=== PATIENT | male | born 1965 | race Caucasian/White ===

== ENCOUNTER 2016-10-28 10:31 | Emergency (ER) | payer SELFPAY ==
[2016-10-28 10:46] VITALS: BP 110/74
--- NOTE | 2016-10-28 11:10 | RAD ---
HISTORY: Left foot injury COMPARISONS: None VIEWS: 3, Frontal, lateral, and oblique views of the left foot FINDINGS: BONE DENSITY: Normal. BONES: There is no displaced fracture. There are calcaneal enthesophytes JOINTS: There is no arthropathy. ALIGNMENT: There is no dislocation. SOFT TISSUES: Unremarkable. OTHER FINDINGS: None. IMPRESSION: NO ACUTE OSSEOUS INJURY. IF SYMPTOMS PERSIST, RECOMMEND REPEAT IMAGING.
--- NOTE | 2016-10-28 11:30 | UC ---
Lower Extremity/Ankle HPI - HPI Summary HPI Summary: heavy object fell on left foot 2mo ago. He did not have significant pain at first nor for the first month. for the second month, he has had increased pain with certain positions and after a long day of being on his feet. no swelling redness. no prior injury. - History of Current Complaint Chief Complaint: UCLowerExtremity Stated Complaint: LEFT FOOT INJURY W/C Time Seen by Provider: 10/28/16 11:13 Hx Obtained From: Patient Onset/Duration: Gradual Onset Severity Initially: Mild Severity Currently: Moderate Aggravating Factor(s): Nothing - it does not hurt with use usually but it will hurt at the end of the day. Able to Bear Weight: Yes Related History: Occupational Injury - Allergies/Home Medications Allergies/Adverse Reactions: Allergies Allergy/AdvReac Type Severity Reaction Status Date / Time No Known Allergies Allergy Verified 10/28/16 10:40 Home Medications: Home Medications Ibuprofen TAB* [Advil TAB*] 400 mg PO Q6H PRN 10/28/16 [History Confirmed ] PMH/Surg Hx/FS Hx/Imm Hx Endocrine History Of: Denies: Diabetes Cardiovascular History Of: Denies: Hypertension, Pacemaker/ICD - Surgical History Surgical History: Yes Surgery Procedure, Year, and Place: Right Knee Meniscus Arthrocopy, 2012, [place]; Partial Thyroidectomy s/p Rupture, 2000, [place] - Family History Known Family History: Positive: Other - no fh of foot problems. - Social History Alcohol Use: Occasionally Substance Use Type: None Smoking Status (MU): Never Smoked Tobacco Review of Systems All Other Systems Reviewed And Are Negative: Yes Physical Exam Triage Information Reviewed: Yes Appearance: Well-Appearing, No Pain Distress, Well-Nourished, Ill-Appearing Vital Signs: Initial Vital Signs Temp 98 F 10/28/16 10:36 Pulse 78 10/28/16 10:36 Resp 16 10/28/16 10:36 BP 110/74 10/28/16 10:36 Pulse Ox 99 10/28/16 10:36 Vital Signs Reviewed: Yes Eye Exam: Normal Eyes: Positive: Conjunctiva Clear. Negative: Conjunctiva Inflamed ENT Exam: Normal ENT: Positive: Normal ENT inspection, Hearing grossly normal, Pharynx normal. Negative: Pharyngeal erythema, Nasal congestion, Nasal drainage, TMs normal, TM bulging, TM dull, TM red, Tonsillar swelling, Tonsillar exudate, Trismus, Muffled/hoarse voice Neck exam: Normal Neck: Positive: Supple, Nontender, No Lymphadenopathy. Negative: Nuchal Rigidity, Tenderness @, Enlarged Nodes @ Respiratory Exam: Normal Respiratory: Positive: Chest non-tender, Lungs clear, Normal breath sounds, No respiratory distress, No accessory muscle use. Negative: Respiratory distress, Decreased breath sounds, Accessory muscle use, Crackles, Rhonchi, Stridor, Wheezing, Expiration Cardiovascular: Positive: RRR, No Murmur, Pulses Normal, Brisk Capillary Refill Abdominal Exam: Normal Abdomen Description: Positive: Nontender, No Organomegaly Musculoskeletal Exam: Other - there is no deformity , swelling. there is tenderness with squeeze of metatarsals together. Neurological Exam: Normal Neurological: Positive: Alert, Muscle Tone Normal. Negative: Fatigued Psychological Exam: Normal Skin Exam: Normal Skin: Negative: rashes Lower Extremity Course/Dx - Course Course Of Treatment: we discussed possibility of occult small fracture, bone bruise and foot sprain. At this point with two months of symptoms, I would recommend f/u with ortho possible walking boot versus further evalutation with bone scan or MRI if not improving. referral to ortho. - Differential Dx/Diagnosis Differential Diagnosis/HQI/PQRI: Arthritis, Bursitis, Cellulitis, Compartment Syndrome, Contusion, Dislocation, Foreign Body, Fracture (Closed), Fracture ( Open), Gout, Infection, Septic Arthritis, Subungual Hematoma, Sprain, Strain, Tendonitis, Tenosynovitis Provider Diagnoses: foot pain traumatic. Discharge - Discharge Plan Condition: Good Disposition: HOME Patient Education Materials: Foot Sprain (ED) Referrals: Gadiel Singleton MD [Medical Doctor] - 2 Days Siddharth Aguila [Primary Care Provider] -
== END 2016-10-28 11:34 | disposition home or self-care (01) ==
LOC: UCCORT 10:31
DX: M79.672 Pain in left foot (principal)
CPT/HCPCS: 99211; G0463

== ENCOUNTER 2017-05-23 13:12 | Emergency (ER) | payer BC, OTHER ==
[2017-05-23 14:22] VITALS: BP 125/80
--- NOTE | 2017-05-23 14:32 | UC ---
Bite Injury/Animal HPI - HPI Summary HPI Summary: 51 year old male presents with tick bite on right shoulder. - History of Current Complaint Chief Complaint: UCSkin Stated Complaint: TICK BITE Time Seen by Provider: 05/23/17 14:04 Severity Currently: Moderate Severity Initially: Moderate Onset/Duration: Sudden Onset - Allergies/Home Medications Allergies/Adverse Reactions: Allergies Allergy/AdvReac Type Severity Reaction Status Date / Time No Known Allergies Allergy Verified 05/23/17 14:22 PMH/Surg Hx/FS Hx/Imm Hx Previously Healthy: Yes - Surgical History Surgical History: Yes Surgery Procedure, Year, and Place: Right Knee Meniscus Arthrocopy, 2012, [place]; Partial Thyroidectomy s/p Rupture, 2000, [place]; umbilical hernia [place] [facility] - Family History Known Family History: Positive: Other - no fh of foot problems. - Social History Alcohol Use: Occasionally Substance Use Type: None Smoking Status (MU): Never Smoked Tobacco - Immunization History Most Recent Tetanus Shot: unknown Review of Systems Constitutional: Negative Skin: Rash, Other - tick bite on right shoulder Eyes: Negative ENT: Negative Respiratory: Negative Cardiovascular: Negative Gastrointestinal: Negative Genitourinary: Negative Motor: Negative Neurovascular: Negative Musculoskeletal: Negative Neurological: Negative Psychological: Negative All Other Systems Reviewed And Are Negative: Yes Physical Exam Triage Information Reviewed: Yes Vital Signs: Initial Vital Signs Temp 36.7 C 05/23/17 14:16 Pulse 89 05/23/17 14:16 Resp 18 05/23/17 14:16 BP 125/80 05/23/17 14:16 Eye Exam: Normal ENT Exam: Normal Dental Exam: Normal Neck exam: Normal Neck: Positive: 1 Respiratory Exam: Normal Cardiovascular Exam: Normal Abdominal Exam: Normal Musculoskeletal Exam: Normal Neurological Exam: Normal Psychological Exam: Normal Skin: Positive: Other - tick bite right shoulder Bite Injury Course/Dx - Course Course Of Treatment: removal tick from right shoulder - Differential Dx/Diagnosis Provider Diagnoses: rash. tick bite Discharge - Discharge Plan Condition: Stable Disposition: HOME Patient Education Materials: Lyme Disease (ED), Tick Bite (ED) Referrals: Siddharth Aguila [Primary Care Provider] -
[2017-05-23] MEDS ORDERED: DOXYcycline CAP(*) 100 MG PO ONE (14:35)
[2017-05-23 19:00] LABS: Hematocrit 43 % (42-52); Hemoglobin 15.1 g/dl (14.0-18.0); Mean Corpuscular HGB Conc 35 g/dl (31-36); Mean Corpuscular Hemoglobin 30 pg (27-31); Mean Corpuscular Volume 85 fL (80-94); Mean Platelet Volume 8 um3 (7.4-10.4); Red Blood Count 5.06 10^6/ul (4.0-5.4); Red Cell Distribution Width 13 % (10.5-15); White Blood Count 7.1 10^3/ul (3.5-10.8)
[2017-05-23 19:10] LABS: Albumin 4.5 g/dL (3.2-5.2); BUN/Creatinine Ratio 21.3 (8-20); Calcium 9.3 mg/dL (8.6-10.3); EGFR African American 92.7 (>60); EGFR Non-African American 72.1 (>60); Globulin 2.2 g/dL (2-4); Potassium 4.3 mmol/L (3.5-5.0); Total Bilirubin 0.6 mg/dL (0.2-1.0); Total Protein 6.7 g/dL (6.4-8.9)
== END 2017-05-23 14:56 | disposition home or self-care (01) ==
LOC: UCCORT 13:12
DX: S40.261A Insect bite (nonvenomous) of right shoulder, initial encounter (principal); W57.XXXA Bitten or stung by nonvenomous insect and other nonvenomous arthropods, initial encounter; Y93.9 Activity, unspecified; Y92.9 Unspecified place or not applicable; Y99.9 Unspecified external cause status
CPT/HCPCS: 36415; 80053; 85025; 86618; 99212; A9270-GY; G0463

== ENCOUNTER 2019-06-10 07:45 | Emergency (ER) | payer BC ==
[2019-06-10 07:59] VITALS: BP 145/85
--- NOTE | 2019-06-10 08:43 | UC ---
Throat Pain/Nasal [place] HPI - HPI Summary HPI Summary: 53-year-old male comes in with a chief complaint of 6 days of upper respiratory tract infection symptoms. Started with rhinorrhea and sore throat. Now it has gone down into his chest. And wheezing overnight. No history of asthma he is not a smoker. No fevers measured. - History of Current Complaint Chief Complaint: UCGeneralIllness Stated Complaint: SINUS PRESSURE, CONGESTION Time Seen by Provider: 06/10/19 08:12 Pain Intensity: 0 - Allergies/Home Medications Allergies/Adverse Reactions: Allergies Allergy/AdvReac Type Severity Reaction Status Date / Time No Known Allergies Allergy Verified 05/23/17 14:22 Home Medications: Home Medications guaiFENesin [Mucinex] 600 mg PO 06/10/19 [History] PMH/Surg Hx/FS Hx/Imm Hx Previously Healthy: Yes - Surgical History Surgical History: Yes Surgery Procedure, Year, and Place: Right Knee Meniscus Arthrocopy, 2012, [place]; Partial Thyroidectomy s/p Rupture, 2000, [place]; umbilical hernia [facility] - Family History Known Family History: Positive: Other - no fh of foot problems. - Social History Alcohol Use: Occasionally Substance Use Type: None Smoking Status (MU): Never Smoked Tobacco - Immunization History Most Recent Tetanus Shot: unknown Review of Systems All Other Systems Reviewed And Are Negative: Yes Constitutional: Positive: Other - see hpi Skin: Positive: Negative Eyes: Positive: Negative ENT: Positive: Sore Throat, Nasal Discharge, Sinus Congestion, Sinus Pain/ Tenderness Respiratory: Positive: Shortness Of Breath, Cough, Other - see hpi Cardiovascular: Positive: Negative Gastrointestinal: Positive: Negative Motor: Positive: Negative Neurovascular: Positive: Negative Musculoskeletal: Positive: Negative Neurological: Positive: Negative Psychological: Positive: Negative Is Patient Immunocompromised?: No Physical Exam Triage Information Reviewed: Yes Appearance: No Pain Distress, Well-Nourished, Ill-Appearing - mild Vital Signs: Initial Vital Signs Temp 98.0 F 06/10/19 07:56 Pulse 74 06/10/19 07:56 Resp 18 06/10/19 07:56 BP 145/85 06/10/19 07:56 Pulse Ox 97 06/10/19 07:56 Vital Signs Reviewed: Yes Eye Exam: Normal Eyes: Positive: Conjunctiva Clear ENT: Positive: Pharyngeal erythema, Nasal congestion, Nasal drainage, TMs normal Neck: Positive: Supple Respiratory: Positive: Lungs clear, Normal breath sounds, No respiratory distress Cardiovascular: Positive: RRR Musculoskeletal: Positive: Strength Intact, ROM Intact Neurological: Positive: Alert, Muscle Tone Normal Psychological: Positive: Normal Response To Family, Age Appropriate Behavior Skin Exam: Normal Throat Pain/Nasal Course/Dx - Course Course Of Treatment: DISCUSSED VIRAL VERSES BACTERIAL INFECTIONS AND THE ROLE OF ANTIBIOTICS. THE PATIENT PREFERS TO BE ON ANTIBIOTICS AT THIS TIME. - Differential Dx/Diagnosis Provider Diagnosis: Bronchitis with bronchospasm Discharge ED - Sign-Out/Discharge Documenting (check all that apply): Patient Departure All imaging exams completed and their final reports reviewed: No Studies - Discharge Plan Condition: Stable Disposition: HOME Prescriptions: Albuterol HFA INHALER* [Ventolin HFA Inhaler*] 2 puff INH Q4H PRN #1 mdi PRN Reason: Wheezing DOXYcycline CAP(*) [DOXYcycline 100MG CAP(*)] 100 mg PO BID #20 cap Patient Education Materials: Acute Bronchitis (ED), Bronchospasm (ED) Referrals: Siddharth Aguila [Primary Care Provider] - Additional Instructions: FOLLOW UP WITH YOUR DOCTOR IF NOT COMPLETELY IMPROVED. GET REEVALUATED SOONER IF NOT IMPROVING OR YOUR CONDITION WORSENS OR ANY QUESTIONS OR CONCERNS. - Billing Disposition and Condition Condition: STABLE Disposition: Home
== END 2019-06-10 08:56 | disposition home or self-care (01) ==
LOC: UCCORT 07:45
DX: J20.9 Acute bronchitis, unspecified (principal); J34.89 Other specified disorders of nose and nasal sinuses
CPT/HCPCS: 99212; G0463